=== PATIENT | male | born 1990 | race Hispanic/Latino ===

== ENCOUNTER 2016-10-15 07:31 | Emergency (ER) | payer OTHER ==
[2016-10-15 07:36] VITALS: BMI 23.0
[2016-10-15 07:37] VITALS: TEMP 98.1
--- NOTE | 2016-10-15 08:30 | ED PDOC ---
Lower Extremity Pain/Injury Time Seen by Provider: 10/15/16 07:41 Chief Complaint (Nursing): Lower Extremity Problem/Injury Chief Complaint (Provider): Lower Extremity Problem/Injury History Per: Patient History/Exam Limitations: no limitations Onset/Duration Of Symptoms: Days Current Symptoms Are (Timing): Still Present Severity: Moderate Additional Complaint(s): Patient is a 26 year old male who presents to ED for right ankle pain s/p injury last night. Patient notes he was walking down steps last night and rolled his ankle inward. States pain immediately but iced and elevated all night , unable to bare weight this morning which prompted ED visit. Denies any other injury, took Tylenol at 0700 Past Medical History Reviewed: Historical Data, Nursing Documentation, Vital Signs Vital Signs: Last Vital Signs Temp 98.1 F 10/15/16 07:36 Pulse 87 10/15/16 07:36 Resp 19 10/15/16 07:36 BP 118/70 10/15/16 07:36 Pulse Ox 977 H 10/15/16 07:36 - Medical History PMH: No Chronic Diseases - Surgical History Surgical History: No Surg Hx - Family History Family History: States: No Known Family Hx - Living Arrangements Living Arrangements: With Family - Allergies Allergies/Adverse Reactions: Allergies Allergy/AdvReac Type Severity Reaction Status Date / Time amoxicillin Allergy RASH Verified 10/15/16 07:44 Review of Systems Respiratory: Negative for: Shortness of Breath Gastrointestinal: Negative for: Nausea, Vomiting Musculoskeletal: Positive for: Foot Pain. Negative for: Neck Pain, Back Pain, Leg Pain Skin: Positive for: Bruising. Negative for: Rash Neurological: Negative for: Weakness, Numbness Physical Exam - Reviewed Nursing Documentation Reviewed: Yes Vital Signs Reviewed: Yes - Physical Exam Appears: Positive for: Non-toxic, No Acute Distress Skin: Positive for: Normal Color, Warm Eye Exam: Positive for: Normal appearance Neck: Positive for: Normal Extremity: Positive for: Normal ROM, Tenderness (with swelling and eccymosis to lateral and medial right malleolous (+) hematoma to anterior aspect of ankle. Foot is neurovascularly intact ), Capillary Refill (less than 2 seconds ), Other (neurovascular intact, normal color and p ulses). Negative for: Deformity Neurologic/Psych: Positive for: Alert, Oriented. Negative for: Motor/Sensory Deficits - ECG O2 Sat by Pulse Oximetry: 977 (RA) Pulse Ox Interpretation: Normal Medical Decision Making Medical Decision Making: Time: 0800 Initial impression: Ankle injury r/o fracture Initial plan: -- Ankle/Foot -- Motrin PO Time: 1052 PROCEDURE: Right Ankle Radiographs. HISTORY: fall COMPARISON: None FINDINGS: BONES: There is no acute displaced fracture or bone destruction. Bone mineralization is normal. JOINTS: Normal. Ankle mortise maintained. Talar dome intact SOFT TISSUES: There is moderate lateral soft tissue swelling. OTHER FINDINGS: None. IMPRESSION: No acute displaced fracture or dislocation. Moderate lateral soft tissue swelling. Time: 1053 PROCEDURE: Right Foot Radiographs. HISTORY: fall COMPARISON: None. FINDINGS: BONES: There is no acute fracture or bone destruction. Bone mineralization is normal. JOINTS: Normal. Bone alignment is normal. SOFT TISSUES: Normal. OTHER FINDINGS: None. IMPRESSION: No acute fracture or dislocation. Time: 1115 Results discussed with patient, all questions answered. Foot wrapped in jose bandage, instructed follow up with podiatry for further evaluation. Time: 1145 Posdiatry made aware that patient in unable to walk due to pain, will evaluated in ED at bedside . Time: 1215 Patient evaluated by podiatry results, cleared for discharge. Instructed to follow up with Dr. Hall podiatry in 1 week. Take Motrin as needed for pain pt aware and agreeable to plan Scribe Attestation: Documented by Su Messer acting as a scribe for Kash Bourgeois MD MD Scribe Attestation: All medical record entries made by the Scribe were at my direction and personally dictated by me. I have reviewed the chart and agree that the record accurately reflects my personal performance of the history, physical exam, medical decision making, and the department course for this patient. I have also personally directed, reviewed, and agree with the discharge instructions and disposition. Disposition - Clinical Impression Clinical Impression: Ankle injury - Patient ED Disposition Is Patient to be Admitted: No Counseled Patient/Family Regarding: Studies Performed, Diagnosis, Need For Followup - Disposition Referrals: [facility] [Outside] Aidan Hall MD [Staff Provider] - Disposition: Routine/Home Disposition Time: 09:00 Condition: STABLE Additional Instructions: follow up with dr hall in one week. take motrin for pain. return to the ED with any worsening or concerning symptoms Instructions: Arthralgia (ED)
--- NOTE | 2016-10-15 10:54 | RAD ---
PROCEDURE: Right Ankle Radiographs. HISTORY: fall COMPARISON: None FINDINGS: BONES: There is no acute displaced fracture or bone destruction. Bone mineralization is normal. JOINTS: Normal. Ankle mortise maintained. Talar dome intact SOFT TISSUES: There is moderate lateral soft tissue swelling. OTHER FINDINGS: None. IMPRESSION: No acute displaced fracture or dislocation. Moderate lateral soft tissue swelling.
--- NOTE | 2016-10-15 10:55 | RAD ---
PROCEDURE: Right Foot Radiographs. HISTORY: fall COMPARISON: None. FINDINGS: BONES: There is no acute fracture or bone destruction. Bone mineralization is normal. JOINTS: Normal. Bone alignment is normal. SOFT TISSUES: Normal. OTHER FINDINGS: None. IMPRESSION: No acute fracture or dislocation.
--- NOTE | 2016-10-15 12:39 | CP.PCM.CON ---
History of Present Illness - History of Present Illness History of Present Illness: 26 year old male with no significant PMHx presents to ED for complaint of right ankle pain. He states that yesterday [place] [employer] He was icing and taking elevating his ankle yesterday with some relief. Today, he could not put much weight on his ankle which prompted him to come to the ED to get it examined. He admits to some pain on his right ankle especially on the outside of the ankle. He denies n/v/f/c/sob/ cp. Past Patient History - Infectious Disease Hx of Infectious Diseases: None - Past Social History Smoking Status: Never Smoked - PSYCHIATRIC Hx Substance Use: No - SURGICAL HISTORY Hx Surgeries: No Meds Allergies/Adverse Reactions: Allergies Allergy/AdvReac Type Severity Reaction Status Date / Time amoxicillin Allergy RASH Verified 10/15/16 07:44 Physical Exam - Constitutional Appears: Well, Non-toxic, No Acute Distress - Extremities Exam Additional comments: Vasc: DP and PT pulses are palpable 2/4 b/l. CFT < 3 seconds to all digits b/l. Skin temperature is warm to warm proximal to distal. Non-pitting edema noted to the ankle circumferential. Neuro: Protective sensation is intact. Pain sensation is intact. Derm: No open lesions noted. Ecchymosis noted over lateral aspect of the calcaneus, and anterior aspect of the ankle on the right lower extremity. Ortho: Pain with eversion, inversion, plantarflexion, and dorsiflexion. Pain on palpation of the lateral malleolus, deltoid ligaments, ATFL, PTFL, and CFL on the right. No pain with palpation of Achilles or compression of calf muscle b/l. - Neurological Exam Neurological exam: Alert, Oriented x3 - Psychiatric Exam Psychiatric exam: Normal Affect, Normal Mood Results - Vital Signs Recent Vital Signs: Last Vital Signs Temp 98.1 F 10/15/16 07:36 Pulse 87 10/15/16 07:36 Resp 19 10/15/16 07:36 BP 118/70 10/15/16 07:36 Pulse Ox 977 H 10/15/16 11:52 Assessment & Plan - Assessment and Plan (Free Text) Assessment: 26 year old male with right ankle sprain Plan: Patient examined and evaluated Chart and vitals reviewed Discussed in detail with attending, Dr. Hall Radiograph reviewed- no signs of acute fracture noted Patient dressed with modified lynne compressive dressing and posterior splint Patient instructed to remain non-WB with crutches until he follows up in Dr. Argueta office Patient instructed on proper use of crutches Patient to keep dressing clean, dry, intact Patient to return to the ED is symptoms worsen Patient to follow up in Dr. Argueta office next Thursday
[2016-10-15 14:23] VITALS: BP 110/70; PULSE 82; RESP 18
[2016-10-17 01:14] VITALS: O2SAT 977
== END 2016-10-15 13:45 | disposition home or self-care (01) ==
LOC: H.ER 07:31
DX: S99.911A Unspecified injury of right ankle, initial encounter (principal); X50.9XXA Other and unspecified overexertion or strenuous movements or postures, initial encounter; Y92.89 Other specified places as the place of occurrence of the external cause